=== PATIENT | female | born 1995 | race Caucasian/White ===

== ENCOUNTER 2020-03-21 13:15 | Emergency (ER) | payer OTHER ==
[~2020-03-21] VITALS: Ht 157.5 cm; Wt 104.8 kg
[2020-03-21 13:21] VITALS: Ht 157.5 cm; Wt 104.8 kg
[2020-03-21 14:56] VITALS: BP 111/70
== END 2020-03-21 14:56 | disposition home or self-care (01) ==
LOC: ED 13:15
DX: L02.415 Cutaneous abscess of right lower limb (principal)

== ENCOUNTER 2020-03-25 14:39 | Emergency (ER) | payer OTHER ==
[~2020-03-25] VITALS: Ht 157.5 cm; Wt 102.5 kg
[2020-03-25 15:01] VITALS: Ht 157.5 cm; Wt 102.5 kg
[2020-03-25 16:32] VITALS: BP 117/84
== END 2020-03-25 16:32 | disposition home or self-care (01) ==
LOC: ED 14:39
DX: L03.115 Cellulitis of right lower limb (principal); L97.119 Non-pressure chronic ulcer of right thigh with unspecified severity